=== PATIENT | male | born 1970 | race Caucasian/White ===

== ENCOUNTER 2018-05-26 00:10 | Emergency (ER) | payer BC ==
[2018-05-26 00:22] VITALS: BP 154/86
--- NOTE | 2018-05-26 00:23 | ED Physician Documentation ---
PD HPI LOWER EXT INJURY - Stated complaint Stated Complaint: LT KNEE INJURY - Chief complaint Chief Complaint: Ext Problem - History obtained from History obtained from: Patient - History of Present Illness PD HPI LOW EXT INJURY LOCATION: Left, Knee Type of injury: Other Where injury occurred: Home Timing - onset: Today Timing - details: Abrupt onset, Still present Improved by: Immobilization Contributing factors: Prior ortho surgery Similar symptoms before: No diagnosis Recently seen: Not recently seen - Additional information Additional information: Patient is a 48 year old male who is presenting to the emergency department for left knee pain. patient states that he was kneeling down on his knee and when he stood up he developed left sided knee pain. Patient reports prior orthopedic surgery but denies any acute trauma. Review of Systems Ten Systems: 10 systems reviewed and negative Constitutional: denies: Fever, Chills Skin: reports: Rash, Lesions Musculoskeletal: reports: Extremity pain, Joint pain, Joint swelling Neurologic: denies: Generalized weakness, Focal weakness, Numbness PD PAST MEDICAL HISTORY - Allergies Allergies/Adverse Reactions: Allergies Allergy/AdvReac Type Severity Reaction Status Date / Time No Known Drug Allergies Allergy Verified 01/20/16 21:07 - Social History Does the pt smoke?: No Smoking Status: Never smoker Does the pt drink ETOH?: No Does the pt have substance abuse?: No - Immunizations Immunizations are current?: Yes - POLST Patient has POLST: No PD ED PE NORMAL - Vitals Vital signs reviewed: Yes - General General: Alert and oriented X 3, No acute distress - HEENT HEENT: Atraumatic, PERRL - Cardiac Cardiac: RRR - Respiratory Respiratory: No respiratory distress - Abdomen Abdomen: Non distended - Neuro Neuro: Alert and oriented X 3, No motor deficit Eye Opening: Spontaneous Motor: Obeys Commands Verbal: Oriented GCS Score: 15 PD ED PE EXPANDED - Derm Derm: Other (severe psoriasis throughout his body) - Extremities Extremities: Left knee (mild tenderness and minimal swelling to left knee. no erythema) Results - Vitals Vitals: Vital Signs - 24 hr 05/26/18 00:19 Temperature 36.8 C Heart Rate 81 Respiratory 17 Rate Blood Pressure 154/86 H O2 Saturation 97 Oxygen O2 Source Room air - Rads (name of study) left knee Radiology: Final report received, EMP read contemporaneously (no acute fracture or dislocation) PD MEDICAL DECISION MAKING - ED course Complexity details: reviewed old records, reviewed results, re-evaluated patient, considered differential, d/w patient ED course: patient was seen and examined at bedside. Imaging was ordered. when patient returned from imaging results were reviewed. there was no acute fracture or dislocation. patient required no further work up and was stable for discharge with outpatient followup. - Sepsis Event Vital Signs: Vital Signs - 24 hr 05/26/18 00:19 Temperature 36.8 C Heart Rate 81 Respiratory 17 Rate Blood Pressure 154/86 H O2 Saturation 97 Oxygen O2 Source Room air Departure - Departure Disposition: 01 Home, Self Care Clinical Impression: Internal derangement of left knee Condition: Good Instructions: ED Meniscal Injury Knee Poss Follow-Up: James Xiao DO [Primary Care Provider] - Comments: Your x-rays were normal today. there is no acute fracture or dislocation. You can take motrin or tylenol as needed for pain. If your symptoms persist you can follow up with your doctor or orthopedist for further care.
--- NOTE | 2018-05-26 01:26 | XRAY Report ---
Reason: left knee pain after kneeling Procedure Date: 05/26/2018 Accession Number: [id number] / [id number] Procedure: XR - Knee 2 View LT CPT Code: FULL RESULT: EXAM: LEFT KNEE RADIOGRAPHY EXAM DATE: 05/26/2018 01:03 AM. CLINICAL HISTORY: Left knee pain after kneeling. COMPARISON: None. TECHNIQUE: 2 views. FINDINGS: Bones: Normal. No fractures or bone lesions. Joints: Normal. No effusion. No subluxations. Soft Tissues: Normal. No soft tissue swelling. IMPRESSION: Normal knee radiography. [facility]
[2018-05-26] MEDS ORDERED: ACETAMINOPHEN 500 MG TABLET PO STA (01:32)
== END 2018-05-26 01:44 | disposition home or self-care (01) ==
LOC: ED 00:10
DX: M23.92 Unspecified internal derangement of left knee (principal)
CPT/HCPCS: 73560; 99283; A9270

== ENCOUNTER 2019-08-16 17:47 | Outpatient (CLI) | payer SELFPAY | END 2019-08-16 17:48 | disposition critical access hospital (66) | LOC: EMS 17:47 | PROVIDERS: ATTEND Surgery ==